=== PATIENT | female | born 1985 | race Caucasian/White ===

== ENCOUNTER 2024-02-28 14:23 | Inpatient (IN) | payer OTHER ==
[~2024-02-28] VITALS: Ht 165.1 cm; Wt 49.0 kg
[2024-02-28] MEDS ORDERED: HYDROMORPHONE 1 MG/1 ML DISP.SYRIN ONE (14:34)
[2024-02-28] MEDS ORDERED: ONDANSETRON 4 MG/2 ML VIAL ONE (14:34)
[2024-02-28] MEDS: IV NORMAL SALINE 1000 ML BAG IV ONE ×3 (15:00→18:10)
[2024-02-28] MEDS: HYDROMORPHONE 1 MG/1 ML DISP.SYRIN IV ONE (15:00)
[2024-02-28] MEDS: ONDANSETRON 4 MG/2 ML VIAL IV ONE (15:01)
[2024-02-28 15:07] LABS: BASOPHILS % (AUTO) 0.5 % (0.0-2.0); EOSINOPHILS % (AUTO) 0.2 % (0.0-7.0); HEMATOCRIT 34.6 % (31.2-41.9); HEMOGLOBIN 11.7 g/dL (10.9-14.3); LYMPHOCYTES # (AUTO) 1.8 K/uL (0.8-4.8); LYMPHOCYTES % (AUTO) 23.8 % (20.5-51.5); MEAN CORPUSCULAR HGB CONC 34 g/dL (32.3-35.6); MEAN CORPUSCULAR VOLUME 91.3 fL (75.5-95.3); MONOCYTES # (AUTO) 0.3 K/uL (0.1-1.30); MONOCYTES % (AUTO) 4.7 % (0.0-11.0); NEUTROPHILS # (AUTO) 5.3 K/uL (1.8-8.9); NEUTROPHILS % (AUTO) 70.8 % (38.5-71.5); PLATELET COUNT (AUTO) 234 K/uL (179-408); RED BLOOD CELL COUNT(AUTO) 3.79 MIL/uL (3.63-4.92); RED CELL DISTRIBUTION WIDTH 12.2 % (12.3-17.7); WHITE BLOOD COUNT (AUTO) 7.4 K/uL (3.8-11.8)
[2024-02-28 15:11] LABS: DIFFERENTIAL COMMENT 1
[2024-02-28 15:16] LABS: CALCIUM 8.8 mg/dL (8.5-10.1); CARBON DIOXIDE 21 mmol/L (21-32); CHLORIDE 103 mmol/L (98-107); CREATININE 0.5 mg/dL (0.6-1.3); GLUCOSE 90 mg/dL (74-106); LIPASE 26 U/L (16-77); POTASSIUM 3.9 mmol/L (3.5-5.1); SODIUM SERUM 141 mmol/L (136-145); UREA NITROGEN, BLOOD 13 mg/dL (7-18)
[2024-02-28 15:21] LABS: ALANINE AMINOTRANSFERASE 20 U/L (14-59); ALBUMIN 3.6 g/dL (3.4-5.0); ALKALINE PHOSPHATASE 34 U/L (50-136); ASPARTATE AMINOTRANSFERASE 7 U/L (15-37); BILIRUBIN,DIRECT 0.1 mg/dL (0.0-0.2); BILIRUBIN,TOTAL 0.6 mg/dL (0.2-1.0); TOTAL PROTEIN, SERUM 6.6 g/dL (6.4-8.2)
[2024-02-28] MEDS ORDERED: diphenhydrAMINE 50 MG/1 ML VIAL ONE (15:31)
[2024-02-28] MEDS ORDERED: METOCLOPRAMIDE HCL 10 MG/2 ML VIAL ONE (15:32)
[2024-02-28] MEDS ORDERED: FENTANYL CITRATE 100 MCG/2 ML AMPUL ONE ×2 (15:32→17:40)
[2024-02-28] MEDS: METOCLOPRAMIDE HCL 10 MG/2 ML VIAL IV ONE (15:37)
[2024-02-28] MEDS: diphenhydrAMINE 50 MG/1 ML VIAL IV ONE (15:37)
[2024-02-28] MEDS: FENTANYL CITRATE 100 MCG/2 ML AMPUL IV ONE ×2 (15:37→17:46)
[2024-02-28] MEDS ORDERED: TRAM50TA2 PO (17:55)
[2024-02-28] MEDS: TRAMADOL HCL 50 MG TABLET PO ONE (19:30)
[2024-02-28 19:37] LABS: BASOPHILS % (AUTO) 0.3 % (0.0-2.0); HEMATOCRIT 30.6 % (31.2-41.9); HEMOGLOBIN 10.3 g/dL (10.9-14.3); LYMPHOCYTES # (AUTO) 0.7 K/uL (0.8-4.8); LYMPHOCYTES % (AUTO) 9.1 % (20.5-51.5); MEAN CORPUSCULAR HEMOGLOBIN 31.3 uug (24.7-32.8); MEAN CORPUSCULAR HGB CONC 34 g/dL (32.3-35.6); MEAN CORPUSCULAR VOLUME 92.8 fL (75.5-95.3); MONOCYTES # (AUTO) 0.2 K/uL (0.1-1.30); NEUTROPHILS # (AUTO) 6.5 K/uL (1.8-8.9); NEUTROPHILS % (AUTO) 87.6 % (38.5-71.5); PLATELET COUNT (AUTO) 181 K/uL (179-408); RED CELL DISTRIBUTION WIDTH 12.4 % (12.3-17.7); WHITE BLOOD COUNT (AUTO) 7.4 K/uL (3.8-11.8)
[2024-02-28 19:40] LABS: DIFFERENTIAL COMMENT 1
[2024-02-28] MEDS ORDERED: HYDROMORPHONE 1 MG/1 ML DISP.SYRIN IV PRN (21:15)
[2024-02-28] MEDS ORDERED: IV NS 1000 ML 1,000 ML IV PRN (21:15)
[2024-02-28] MEDS ORDERED: ACETAMINOPHEN 325 MG TABLET PO PRN (21:15)
[2024-02-28] MEDS ORDERED: ONDANSETRON 4 MG/2 ML VIAL IV PRN (21:15)
[2024-02-28] MEDS ORDERED: TRAMADOL HCL 50 MG TABLET PO PRN (21:15)
[2024-02-28] MEDS ORDERED: CABE0.5T2 PO (22:16)
[2024-02-28] MEDS ORDERED: ASPI81TA31 PO (22:16)
[2024-02-28 23:20] VITALS: BP 93/59; TEMP 98.2; O2SAT 99
[2024-02-29] MEDS ORDERED: ACETAMINOPHEN 500 MG TABLET PO PRN (01:00)
[2024-02-29] MEDS ORDERED: IBUPROFEN 600 MG TABLET PO PRN ×2 (01:00→02:05)
[2024-02-29 01:21] LABS: BASOPHILS % (AUTO) 0.2 % (0.0-2.0); EOSINOPHILS % (AUTO) 0.1 % (0.0-7.0); HEMATOCRIT 31.2 % (31.2-41.9); HEMOGLOBIN 10.7 g/dL (10.9-14.3); LYMPHOCYTES # (AUTO) 1.2 K/uL (0.8-4.8); MEAN CORPUSCULAR HEMOGLOBIN 31.5 uug (24.7-32.8); MEAN CORPUSCULAR HGB CONC 34 g/dL (32.3-35.6); MEAN CORPUSCULAR VOLUME 91.4 fL (75.5-95.3); MONOCYTES # (AUTO) 0.4 K/uL (0.1-1.30); MONOCYTES % (AUTO) 6.2 % (0.0-11.0); NEUTROPHILS # (AUTO) 4.4 K/uL (1.8-8.9); NEUTROPHILS % (AUTO) 73.5 % (38.5-71.5); PLATELET COUNT (AUTO) 191 K/uL (179-408); RED BLOOD CELL COUNT(AUTO) 3.42 MIL/uL (3.63-4.92); RED CELL DISTRIBUTION WIDTH 12.2 % (12.3-17.7)
[2024-02-29 01:24] LABS: DIFFERENTIAL COMMENT 1
[2024-02-29 01:27] LABS: *BILIRUBIN,URIN NEGATIVE (NEGATIVE); *BLOOD, URINE NEGATIVE (NEGATIVE); *CLARITY,URINE CLEAR (CLEAR); *COLOR,URINE YELLOW (YELLOW); *KETONES,URINE 4+ (NEGATIVE); *PROTEIN,URINE NEGATIVE (NEGATIVE); *UROBILINOGEN,URINE 0.2 E.U./dl (NORMAL); LEUKOCYTE ESTERASE ,URINE NEGATIVE (NEGATIVE); NITRITE, URINE NEGATIVE (NEGATIVE); PH,URINE 5.5 (5.0-8.0); UGLUCOSE NEGATIVE (NEGATIVE)
[2024-02-29 01:35] LABS: ALBUMIN 2.9 g/dL (3.4-5.0); BILIRUBIN,TOTAL 0.4 mg/dL (0.2-1.0); CALCIUM 7.8 mg/dL (8.5-10.1); CREATININE 0.6 mg/dL (0.6-1.3); MAGNESIUM 2.1 mg/dL (1.8-2.4); PHOSPHOROUS 3.5 mg/dL (2.5-4.9); POTASSIUM 4.1 mmol/L (3.5-5.1); TOTAL PROTEIN, SERUM 5.7 g/dL (6.4-8.2)
[2024-02-29 01:45] LABS: BACTERIA,URINE FEW /HPF (NONE SEEN); RBC,URINE NONE SEEN /HPF (0-3); SQUAMOUS EPITHELIAL CELL,UR FEW /HPF (NONE SEEN); WBC,URINE NONE SEEN /HPF (0-3)
[2024-02-29] MEDS ORDERED: ACETAMINOPHEN 325 MG TABLET PO PRN (02:15)
[2024-02-29] MEDS: ACETAMINOPHEN 325 MG TABLET PO PRN (02:17)
[2024-02-29 06:00] VITALS: BP 90/50; TEMP 98.2; O2SAT 97
[2024-02-29] MEDS: PANTOPRAZOLE SODIUM 40 MG TABLET.DR PO SCH (06:55)
[2024-02-29] MEDS: MAGNESIUM HYDROXIDE 30 ML LIQUID UDC PO PRN (07:59)
[2024-02-29] MEDS: PSYLLIUM SEED PACKET PO SCH (10:45)
[2024-02-29 10:53] LABS: BASOPHILS % (AUTO) 0.4 % (0.0-2.0); EOSINOPHILS % (AUTO) 0.3 % (0.0-7.0); HEMATOCRIT 29.7 % (31.2-41.9); HEMOGLOBIN 10.5 g/dL (10.9-14.3); LYMPHOCYTES # (AUTO) 1.1 K/uL (0.8-4.8); LYMPHOCYTES % (AUTO) 22.9 % (20.5-51.5); MEAN CORPUSCULAR HEMOGLOBIN 32.2 uug (24.7-32.8); MEAN CORPUSCULAR HGB CONC 35 g/dL (32.3-35.6); MEAN CORPUSCULAR VOLUME 91.3 fL (75.5-95.3); MONOCYTES # (AUTO) 0.3 K/uL (0.1-1.30); MONOCYTES % (AUTO) 6.3 % (0.0-11.0); NEUTROPHILS # (AUTO) 3.3 K/uL (1.8-8.9); NEUTROPHILS % (AUTO) 70.1 % (38.5-71.5); PLATELET COUNT (AUTO) 191 K/uL (179-408); RED BLOOD CELL COUNT(AUTO) 3.25 MIL/uL (3.63-4.92); RED CELL DISTRIBUTION WIDTH 12.2 % (12.3-17.7); WHITE BLOOD COUNT (AUTO) 4.6 K/uL (3.8-11.8)
[2024-02-29 11:04] LABS: DIFFERENTIAL COMMENT 1
[2024-02-29 13:30] VITALS: BP 101/52; TEMP 98.4; O2SAT 97
[2024-02-29 19:10] LABS: PREGNANCY TEST SERUM QUAN 7 miul/L (0-6)
== END 2024-02-29 14:15 | disposition home or self-care (01) | DRG 761 ==
LOC: ER 14:23 → MEDSURG3 22:14
PROVIDERS: ADMIT Internal Medicine
DX: N83.11 Corpus luteum cyst of right ovary (principal); D64.9 Anemia, unspecified; R93.89 Abnormal findings on diagnostic imaging of other specified body structures; I95.9 Hypotension, unspecified; Z79.82 Long term (current) use of aspirin; Z88.2 Allergy status to sulfonamides
CPT/HCPCS: 36415; 76856; 83550; 83690; 83735; 84100; 85025; 85730; G0378; J1171; J1200; J2405; J2765; J3010; J3490; J7040